=== PATIENT | male | born 1980 | race Caucasian/White ===

== ENCOUNTER 2016-11-29 14:54 | Emergency (ER) | payer OTHER ==
[2016-11-29 15:17] LABS: EOSINOPHIL (%) 1.7 % (0-5); EOSINOPHIL COUNT 0.1 K/uL (0-0.3); HEMATOCRIT 38.3 % (38.0-50.0); IMMATURE GRANULOCYTE (%) 0.7 % (0.0-0.7); LYMPHOCYTE COUNT 2.4 K/uL (1.0-2.8); MCH 29.6 PG (29.0-34.0); MCHC 34.7 G/DL (30.0-36.0); MCV 85.1 FL (86-99); MEAN PLAT.VOLUME 8.8 uM^3 (9.0-12.4); MONOCYTE (%) 7.5 % (3-12); MONOCYTE COUNT 0.5 K/uL (0-0.8); NEUTROPHIL (%) 49.8 % (45-76); PLATELET COUNT 249 K/uL (156-360); RBC DIS.WIDTH-CV 11.8 % (11.8-14.6); RBC DIS.WIDTH-SD 36.5 % (39-53)
[2016-11-29 15:27] LABS: AMYLASE 18 IU/L (1-118); CHLORIDE 100 mEq/L (99-109); POTASSIUM 4.3 mEq/L (3.7-5.4); SODIUM 137 mEq/L (136-147)
[2016-11-29 15:29] LABS: GLUCOSE 116 mg/dL (70-99)
[2016-11-29 15:30] LABS: ANION GAP 9 MEQ/L (2-14)
[2016-11-29 15:32] LABS: SERUM ETHYL ALCOHOL < 10 mg/dL
[2016-11-29 15:33] LABS: UREA NITROGEN (BUN) 16 mg/dL (9-23)
[2016-11-29 15:35] LABS: GFR ESTIMATE (CALCULATED) > 59 mL/min/
[2016-11-29 15:36] LABS: LIPASE 57 U/L (1.0-51.0)
[2016-11-29 16:41] VITALS: BP 105/80
[2016-11-29] MEDS ORDERED: DILAUDID2 MG PO (17:34)
[2016-11-29] MEDS ORDERED: SOMA350 MG PO (17:34)
[2016-11-29 17:35] LABS: ADD MIUA? NO; BILIRUBIN NEGATIVE; BLOOD NEGATIVE; COLOR YELLOW ((YELLOW)); GLUCOSE (STRIP) NEGATIVE; KETONES 5; LEUKOCYTES NEGATIVE; NITRITE NEGATIVE; PROTEIN (STRIP) NEGATIVE; SPECIFIC GRAVITY 1.035 (1.000-1.030); UCUL ADDED? NO; UROBILINOGEN 0.2 MG/DL (0.2-1.0)
[2016-11-29 17:51] LABS: AMPHETAMINE PRESUMPTIVE POSITIVE (500 ng/mL); BARBITURATES NEGATIVE (200 ng/mL); BENZODIAZEPINES NEGATIVE (150 ng/mL); COCAINE NEGATIVE (150 ng/mL); INTERNAL CONTROLS VALID? YES; METHADONE PRESUMPTIVE POSITIVE (200 ng/mL); METHAMPHETAMINE NEGATIVE (500 ng/mL); OPIATES (MORPHINE) PRESUMPTIVE POSITIVE (100 ng/mL); OXYCODONE NEGATIVE (100 ng/mL); PHENCYCLIDINE NEGATIVE (25 ng/mL); PROPOXYPHENE NEGATIVE (300 ng/mL); THC CANNABINOIDS NEGATIVE (50 ng/mL); TRICYCLIC ANTIDEPRESSANTS NEGATIVE (300 ng/mL)
[2016-11-29 17:52] LABS: ADD MEDTOX COMMENT Y
== END 2016-11-29 18:51 | disposition home or self-care (01) ==
LOC: EME 14:54 → TRA 14:54
PROVIDERS: Emergency Medicine
DX: T14.8 Other injury of unspecified body region (principal); M54.2 Cervicalgia; M54.9 Dorsalgia, unspecified; R51 Headache; G40.909 Epilepsy, unspecified, not intractable, without status epilepticus; W10.9XXA Fall (on) (from) unspecified stairs and steps, initial encounter
CPT/HCPCS: 70450; 71260; 72125; 72129; 72132; 74177; 80048; 81003; 82150; 83690; 84999; 85025; 86900; 86901; 93005; 99281; 99285; G0480; J1953; J2270; J2405; J3010; J7050

== ENCOUNTER 2017-03-04 14:49 | Emergency (ER) | payer OTHER ==
[~2017-03-04] VITALS: Ht 170.2 cm; Wt 75.3 kg
[~2017-03-04 14:49] MED LIST: DILAUDID2 MG PO; SOMA350 MG PO
[2017-03-04 14:59] VITALS: BP 137/80
== END 2017-03-04 18:14 | disposition left against medical advice (07) ==
LOC: EME 14:49
DX: G40.909 Epilepsy, unspecified, not intractable, without status epilepticus (principal); W18.30XA Fall on same level, unspecified, initial encounter; F17.200 Nicotine dependence, unspecified, uncomplicated
CPT/HCPCS: 99281; 99283